=== PATIENT | male | born 1990 | race Caucasian/White ===

== ENCOUNTER 2018-12-23 16:02 | Emergency (ER) | payer OTHER ==
[2018-12-23] MEDS ORDERED: ONDANSETRON 4 MG/2 ML VIAL ONE (16:40)
[2018-12-23] MEDS ORDERED: fentaNYL 100 MCG/2 ML INJ ONE (16:40)
[2018-12-23] MEDS ORDERED: fentaNYL 100 MCG/2 ML INJ IVP ONE ×2 (16:42→17:43)
[2018-12-23] MEDS ORDERED: ONDANSETRON 4 MG/2 ML VIAL IVP ONE (16:42)
[2018-12-23] MEDS ORDERED: PROPOFOL 200 MG/20 ML VIAL ONE (16:55)
--- NOTE | 2018-12-23 16:58 | EDPHY ---
H & P Time Seen by Provider: 12/23/18 16:29 HPI/ROS: CHIEF COMPLAINT: left shoulder pain HISTORY OF PRESENT ILLNESS: The patient is a 28-year-old male presents emergency department after falling out of a [place]ock. The patient rotated out of the hand make an kept his arm holding onto the [place] when he fell to the ground. He feels as though his shoulder dislocated. He now has severe pain with his left shoulder. Worse with movement. No numbness or tingling. No other injury. REVIEW OF SYSTEMS: Negative Past Medical/Surgical History: negative Smoking Status: Never smoked Physical Exam: Vitals noted GENERAL: Mild acute distress, alert. HEENT: Eyes normal to inspection, normal. NECK: Normal, supple. RESPIRATORY: Clear to auscultation bilaterally, no rales, rhonchi or wheezing. CVS: Regular rate and rhythm, no rubs, murmurs, or gallops. ABDOMEN: Soft, nontender, nondistended. BACK: Normal to inspection. SKIN: Normal color, no rash, warm, dry. No pallor. EXTREMITIES: There is notable bruising on the left anterior deltoid crease. There is mild indentation at that location. Clavicle and scapula are nontender. The humerus is nontender. Neurovascular intact distally. NEURO/PSYCH: Alert and oriented, normal mood and affect, normal motor sensory exam. Constitutional: Initial Vital Signs Heart Rate 85 12/23/18 16:09 Respiratory Rate 22 H 12/23/18 16:09 Blood Pressure 145/105 H 12/23/18 16:09 O2 Sat (%) 99 12/23/18 16:09 O2 Delivery Mode Room Air Allergies/Adverse Reactions: No Known Allergies Allergy (Unverified 12/23/18 16:09) Home Medications: Medication Instructions Recorded Cyclobenzaprine [Flexeril 10 MG 10 mg PO TID PRN #15 tab 12/23/18 (*)] Ondansetron Odt [Zofran Odt 4 mg 4 mg PO Q4 #7 tab 12/23/18 (*)] oxyCODONE ORAL SOLUTION 10 mg PO Q4 #30 bottle 12/23/18 [Roxicodone Intensol] Medical Decision Making - Diagnostics Imaging Results: Imaging Impressions Shoulder X-Ray 12/23/18 16:55 Impression: Comminuted humeral neck fracture. Consider CT to best evaluate the position of the humeral head compared to the glenoid. ED Course/Re-evaluation: In the emergency department discussed possible etiologies with the patient. I answered all his questions. Patient was given fentanyl 150 mcg IV. Patient was given Zofran 4 mg IV. The patient was transferred to a larger room to perform conscious sedation. I discussed the pros and cons of conscious sedation with the patient. He consented. He had capacity to make this decision. An x-ray was ordered. X-ray: Please refer the dictated report. Surgical neck fracture of the left humerus. I discussed the case with Dr. Stoddard. He reviewed the images. He recommended the patient be discharged with close follow-up. Patient has been significant time in the emergency department. Initially felt he could not go home and potential admission was arranged. However, the patient felt better during his stay. He wished to be discharged home with outpatient follow-up. He had capacity to make this decision. However, he did not want tablets for medication. He was given rock oxycodone as well as Zofran ODT. I gave him Flexeril tablets in case he feels he can tolerate them once he develops muscle spasms. Patient was given warnings prior to leaving. He will return with worsening symptoms. Differential Diagnosis: My differential diagnosis includes but is not limited to fracture, dislocation, biceps rupture, brachioradialis rupture - Data Points Medications Given: Oxycodone HCl (Roxicodone Intensol) 5 mg PO Q4HRS PRN PRN Reason: Pain, Severe Stop: 01/02/19 18:00 Last Admin: 12/23/18 18:29 Dose: 5 mg Discontinued Medications Diazepam (Valium) 2.5 mg IVP EDNOW ONE Stop: 12/23/18 17:44 Last Admin: 12/23/18 17:48 Dose: 2.5 mg Fentanyl (Sublimaze) 150 mcg IVP EDNOW ONE Stop: 12/23/18 16:43 Last Admin: 12/23/18 16:44 Dose: 150 mcg Fentanyl (Sublimaze) 100 mcg IVP EDNOW ONE Stop: 12/23/18 17:44 Last Admin: 12/23/18 17:48 Dose: 100 mcg Ibuprofen (Motrin Oral Solution) 600 mg PO EDNOW ONE Stop: 12/23/18 18:03 Last Admin: 12/23/18 18:04 Dose: 600 mg Ondansetron HCl (Zofran) 4 mg IVP EDNOW ONE Stop: 12/23/18 16:43 Last Admin: 12/23/18 16:43 Dose: 4 mg Departure - Departure Clinical Impression: Humerus surgical neck fracture Qualifiers: Encounter type: initial encounter Fracture type: closed Fracture morphology: unspecified fracture morphology Fracture alignment: displaced Laterality: left Qualified Code(s): S42.212A - Unspecified displaced fracture of surgical neck of left humerus, initial encounter for closed fracture Condition: Serious Instructions: Arm Fracture in Adults (ED) Additional Instructions: You need to call Dr. Stoddard tomorrow to make the next available appointment this week. Return with increasing pain or any other concerns. Referrals: Siobhan Stoddard MD [Medical Doctor] - 2-3 days without fail Prescriptions: Cyclobenzaprine [Flexeril 10 MG (*)] 10 mg PO TID PRN #15 tab PRN Reason: Spasms Ondansetron Odt [Zofran Odt 4 mg (*)] 4 mg PO Q4 #7 tab oxyCODONE ORAL SOLUTION [Roxicodone Intensol] 10 mg PO Q4 #30 bottle
[2018-12-23] MEDS ORDERED: DIAZEPAM 10 MG/2 ML SYR IVP ONE (17:43)
[2018-12-23] MEDS ORDERED: oxyCODONE ORAL SOLUTION 10 MG/0.5 ML UDSYR PO PRN (18:01)
[2018-12-23] MEDS ORDERED: IBUPROFEN SUSP 100 MG/5 ML UDCUP PO ONE (18:02)
[2018-12-23 20:17] VITALS: BP 116/84
== END 2018-12-23 20:17 | disposition home or self-care (01) ==
DX: S42.212A Unspecified displaced fracture of surgical neck of left humerus, initial encounter for closed fracture (principal); W17.89XA Other fall from one level to another, initial encounter
CPT/HCPCS: 96374; A4565; J2405; J2704; J3010; J3360